=== PATIENT | male | born 1930 | race Caucasian/White ===

== ENCOUNTER 2017-12-27 15:43 | Inpatient (IN) | payer MEDICARE, MEDICAID ==
[~2017-12-27] VITALS: Ht 177.8 cm; Wt 67.2 kg
[2017-12-27] VITALS (10 sets, daily range): BP systolic 83–113; BP diastolic 36–84
[~2017-12-27 15:43] MED LIST: ETOMIDATE 2MG/ML 10ML VIAL IV ONE; VECURONIUM BROMIDE 10 MG/VIAL IV ONE
[2017-12-27] MEDS ORDERED: IPRATROPIUM/ALBUTEROL 0.5-3(2.5)MG/3ML NEB HHN ONE (15:45)
[2017-12-27] MEDS ORDERED: LORAZEPAM 2MG/ML CPJ IV ONE (15:45)
[2017-12-27] MEDS ORDERED: LEVO25TA7 PO (15:53)
[2017-12-27] MEDS ORDERED: APIX2.5T PO (15:53)
[2017-12-27] MEDS ORDERED: insulin (15:53)
[2017-12-27] MEDS ORDERED: DIGO250T4 PO (15:53)
[2017-12-27] MEDS ORDERED: FURO-152 PO (15:53)
[2017-12-27] MEDS ORDERED: AMIO100T4 PO (15:53)
[2017-12-27 16:21] LABS: BG BASE EXCESS -9.6 mmol/L (-2.0-2.0); BG DEOXYHEMOGLOBIN 1.7 % (0.0-5.0); BG HCO3 ACT 12.3 mmol/L (22.0-26.0); BG METHEMOGLOBIN 0.2 % (0.0-1.5); BG OXYGEN SATURATION 98.3 % (92.0-98.5); BG OXYHEMOGLOBIN 98.1 % (94.0-97.0); BG PH 7.454 (7.350-7.450); BG PO2 122.9 mmHg (75.0-100.0); BG SAMPLE SITE RIGHT BRACHIAL; BG TOTAL HEMOGLOBIN 10.4 g/dL (12.0-18.0); BG VENT MODE MASK - NRB
[2017-12-27] MEDS ORDERED: PROPOFOL 10MG/ML 100ML 100 ML IV ONE (16:30)
[2017-12-27] MEDS ORDERED: VECURONIUM BROMIDE 10 MG/VIAL IV ONE (16:30)
[2017-12-27] MEDS ORDERED: ETOMIDATE 2MG/ML 10ML VIAL IV ONE (16:30)
[2017-12-27 16:41] LABS: HEMATOCRIT. 31.1 % (42.0-52.0); HEMOGLOBIN. 10.1 g/dL (14.0-18.0); MEAN CORPUSCULAR HEMOGLOBIN 32.1 pg (28.0-32.0); MEAN PLATELET VOLUME 6.8 fl (7.4-10.4); PLATELET 456 x1000/uL (130-400); RED BLOOD CELL COUNT 3.14 mill/uL (4.7-6.1); RED CELL DISTRIBUTION WIDTH 15.8 % (11.6-14.6)
[2017-12-27 16:47] LABS: CHLORIDE 110 mEq/L (98-107)
[2017-12-27 16:51] LABS: D-DIMER 2.1 mg/L FEU (<0.50); INR 1.4; PARTIAL THROMBOPLASTIN TIME 34.1 sec (23.4-31.0)
[2017-12-27 16:56] LABS: CREATINE KINASE 113 IU/L (39-308)
[2017-12-27 17:11] LABS: CLARITY URINE CLEAR (CLEAR); COLOR URINE YELLOW (YELLOW); KETONES URINE NEGATIVE (NEGATIVE); LEUKOCYTE ESTERASE URINE NEGATIVE (NEGATIVE); NITRITE URINE NEGATIVE (NEGATIVE); OCCULT BLOOD URINE NEGATIVE (NEGATIVE); PROTEIN URINE NEGATIVE (NEGATIVE); SPECIFIC GRAVITY URINE 1.015 (1.005-1.030); UROBILINOGEN URINE 0.2 E.U./dL (0.2-1.0)
[2017-12-27 17:45] LABS: BG BASE EXCESS -9.4 mmol/L (-2.0-2.0); BG CARBOXYHEMOGLOBIN 0.3 % (0.5-1.5); BG DEOXYHEMOGLOBIN 1.9 % (0.0-5.0); BG HCO3 ACT 17.6 mmol/L (22.0-26.0); BG METHEMOGLOBIN 0.3 % (0.0-1.5); BG OXYGEN SATURATION 98.1 % (92.0-98.5); BG OXYHEMOGLOBIN 97.5 % (94.0-97.0); BG PCO2 42.8 mmHg (35.0-45.0); BG PH 7.232 (7.350-7.450); BG PO2 144.8 mmHg (75.0-100.0); BG SAMPLE SITE LEFT RADIAL; BG TIDAL VOLUME(mL) 500 mL; BG TOTAL HEMOGLOBIN 10.4 g/dL (12.0-18.0); BG VENT MODE VENT - A/C; BG VENT RATE 12 set
[2017-12-27] MEDS ORDERED: VANCOMYCIN 1 G PREMIX 200 ML IV SCH (18:15)
[2017-12-27] MEDS ORDERED: ASPIRIN 81MG TABLET NG ONE (18:15)
[2017-12-27] MEDS ORDERED: PIPERACILLIN/TAZ 3.375G PREMIX 50 ML IV ONE (18:15)
[2017-12-27] MEDS ORDERED: SODIUM CHLORIDE 0.45% 1,000 ML IV SCH (18:29)
[2017-12-27] MEDS ORDERED: NA PHOS,M-B/NA PHOS,DI-BA ENEMA 118ML PR PRN (18:30)
[2017-12-27] MEDS ORDERED: HYDROCODONE/ACETAMINOPHEN 5/325MG TABLET PO PRN (18:30)
[2017-12-27] MEDS ORDERED: ACETAMINOPHEN 650MG/20.3ML UDC GT PRN (18:30)
[2017-12-27] MEDS ORDERED: ACETAMINOPHEN 325MG TABLET PO PRN (18:30)
[2017-12-27] MEDS ORDERED: CLONIDINE 0.1MG TABLET PO PRN (18:30)
[2017-12-27] MEDS ORDERED: ENOXAPARIN 40MG/0.4ML SYR SUBCUT SCH (18:30)
[2017-12-27] MEDS ORDERED: MAGNESIUM/ALUMINUM HYDROXIDE/SIMETHICONE 30ML UDC PO PRN (18:30)
[2017-12-27] MEDS ORDERED: GUAIFENESIN 200MG/10ML SUGAR FREE UDC PO PRN (18:30)
[2017-12-27] MEDS ORDERED: HYDROCODONE/ACETAMINOPHEN 10/325MG TABLET PO PRN (18:30)
[2017-12-27] MEDS ORDERED: ONDANSETRON HCL 4MG/2ML VIAL IV PRN (18:30)
[2017-12-27] MEDS ORDERED: ACETAMINOPHEN 650MG SUPP PR PRN (18:30)
[2017-12-27] MEDS ORDERED: DOCUSATE SODIUM 100MG CAPSULE PO PRN (18:30)
[2017-12-27] MEDS ORDERED: PIPERACILLIN/TAZ 3.375G PREMIX 50 ML IV SCH (18:30)
[2017-12-27] MEDS ORDERED: IPRATROPIUM/ALBUTEROL 0.5-3(2.5)MG/3ML NEB INH PRN (18:30)
[2017-12-27] MEDS ORDERED: BISACODYL 10MG SUPP PR PRN (18:45)
[2017-12-27] MEDS ORDERED: LORAZEPAM 2MG/ML CPJ IV PRN (18:45)
[2017-12-27] MEDS ORDERED: BISACODYL 5MG TABLET PO PRN (18:45)
[2017-12-27] MEDS ORDERED: DEXTROSE 50% WATER 50ML SYRINGE IV PRN (18:45)
[2017-12-27 18:47] LABS: PLATELET ESTIMATE INCREASED
[2017-12-27] MEDS ORDERED: INSULIN LISPRO 100 UNITS/ML SUBCUT SCH (21:00)
[2017-12-27] MEDS ORDERED: BLOOD SUGAR DIAGNOSTIC STRIP TEST SCH (21:00)
[2017-12-27] MEDS: CARVEDILOL 3.125 MG TABLET PO SCH (22:34)
[2017-12-27] MEDS ORDERED: SODIUM CHLORIDE 0.9% 1000ML BAG (SEPSIS BOLUS) IV ONE (23:00)
[2017-12-27] MEDS: SODIUM CHLORIDE 0.9% INJ 3ML FLUSH IVF SCH (23:13)
[2017-12-27] MEDS ORDERED: NOREPINEPHRINE 8 MG in DEXT 5% WATER 242 ML IV PRN (23:30)
[2017-12-27] MEDS: BLOOD SUGAR DIAGNOSTIC STRIP TEST SCH (23:42)
[2017-12-27] MEDS: ENOXAPARIN 60MG/0.6ML SYR SUBCUT SCH (23:45)
[2017-12-27] MEDS: PANTOPRAZOLE SODIUM 40 MG/VIAL IV SCH (23:45)
[2017-12-28] VITALS (99 sets, daily range): BP systolic 79–134; BP diastolic 32–74
[2017-12-28] MEDS ORDERED: NOREPINEPHRINE 4 MG in DEXT 5% WATER 246 ML IV PRN ×2
[2017-12-28] MEDS: INSULIN LISPRO 100 UNITS/ML SUBCUT SCH ×5 (00:06→21:00)
[2017-12-28] MEDS: SODIUM CHLORIDE 0.9% 1,000 ML IV SCH ×2 (00:06→13:58)
[2017-12-28] MEDS: PROPOFOL 10MG/ML 100ML 100 ML IV PRN ×2 (02:26→20:31)
[2017-12-28] MEDS ORDERED: VANCOMYCIN 1 G PREMIX 200 ML IV SCH (04:00)
[2017-12-28] MEDS: SODIUM CHLORIDE 0.9% INJ 3ML FLUSH IVF SCH ×3 (05:12→22:00)
[2017-12-28] MEDS: PIPERACILLIN/TAZ 2.25G PREMIX 50 ML IV SCH ×3 (05:12→21:35)
[2017-12-28] MEDS: BLOOD SUGAR DIAGNOSTIC STRIP TEST SCH ×4 (06:07→21:00)
[2017-12-28 06:22] LABS: CHLORIDE 111 mEq/L (98-107); HEMATOCRIT. 28.4 % (42.0-52.0); HEMOGLOBIN. 9.2 g/dL (14.0-18.0); MEAN CORPUSCULAR HEMOGLOBIN 32.1 pg (28.0-32.0); MEAN PLATELET VOLUME 8.2 fl (7.4-10.4); PLATELET 325 x1000/uL (130-400); RED BLOOD CELL COUNT 2.87 mill/uL (4.7-6.1); RED CELL DISTRIBUTION WIDTH 15.8 % (11.6-14.6)
[2017-12-28 06:31] LABS: CREATINE KINASE 297 IU/L (39-308); CREATINE KINASE MB FRACTION 3.4 ng/mL (0.5-3.6); LDL CHOLESTEROL 36 mg/dL (5-100)
[2017-12-28 06:32] LABS: HDL CHOLESTEROL 32 mg/dL (40-59)
[2017-12-28] MEDS ORDERED: DEXTROSE 50% WATER 50ML SYRINGE IV PRN (07:45)
[2017-12-28 08:47] LABS: BG BASE EXCESS -6.6 mmol/L (-2.0-2.0); BG CARBOXYHEMOGLOBIN 0.2 % (0.5-1.5); BG DEOXYHEMOGLOBIN 1.1 % (0.0-5.0); BG FRACTION INSPIRED OXYGEN 40; BG METHEMOGLOBIN 0.2 % (0.0-1.5); BG OXYGEN SATURATION 98.9 % (92.0-98.5); BG OXYHEMOGLOBIN 98.5 % (94.0-97.0); BG PCO2 27.5 mmHg (35.0-45.0); BG PH 7.409 (7.350-7.450); BG PO2 153.6 mmHg (75.0-100.0); BG SAMPLE SITE RIGHT BRACHIAL; BG TIDAL VOLUME(mL) 500 mL; BG TOTAL HEMOGLOBIN 9.1 g/dL (12.0-18.0); BG VENT MODE VENT - A/C; BG VENT RATE 14 set
[2017-12-28] MEDS: CARVEDILOL 3.125 MG TABLET PO SCH ×2 (09:00→21:00)
[2017-12-28] MEDS ORDERED: ASPIRIN 325MG EC TABLET PO SCH (09:00)
[2017-12-28] MEDS: PANTOPRAZOLE SODIUM 40 MG/VIAL IV SCH (09:47)
[2017-12-28] MEDS ORDERED: IPRATROPIUM/ALBUTEROL 0.5-3(2.5)MG/3ML NEB HHN PRN (10:30)
[2017-12-28] MEDS: IPRATROPIUM/ALBUTEROL 0.5-3(2.5)MG/3ML NEB HHN SCH ×3 (12:25→21:01)
[2017-12-28] MEDS ORDERED: LIDOCAINE HCL/PF 1% 10 MG/ML 30ML VIAL ONE (13:16)
[2017-12-28 13:22] LABS: *AMPHETAMINES SCREEN URINE NEGATIVE (NEGATIVE); *BARBITURATES SCREEN URINE NEGATIVE (NEGATIVE)
[2017-12-28 13:23] LABS: *BENZODIAZEPINES SCREEN URINE NEGATIVE (NEGATIVE); *COCAINE SCREEN URINE NEGATIVE (NEGATIVE); CANNABINOID URINE SCREEN NEGATIVE (NEGATIVE); METHADONE URINE SCREEN NEGATIVE (NEGATIVE); OPIATES URINE SCREEN NEGATIVE (NEGATIVE); PHENCYCLIDINE URINE SCREEN NEGATIVE (NEGATIVE)
[2017-12-28 14:06] LABS: PLATELET ESTIMATE NORMAL
[2017-12-29] VITALS (93 sets, daily range): BP systolic 63–126; BP diastolic 36–94
[2017-12-29] MEDS: ENOXAPARIN 60MG/0.6ML SYR SUBCUT SCH ×2 (00:16→23:34)
[2017-12-29] MEDS: IPRATROPIUM/ALBUTEROL 0.5-3(2.5)MG/3ML NEB HHN SCH ×5 (02:12→20:36)
[2017-12-29] MEDS: SODIUM CHLORIDE 0.9% 1,000 ML IV SCH ×2 (03:08→15:00)
[2017-12-29] MEDS: SODIUM CHLORIDE 0.9% INJ 3ML FLUSH IVF SCH ×3 (06:00→23:34)
[2017-12-29] MEDS: PIPERACILLIN/TAZ 2.25G PREMIX 50 ML IV SCH ×3 (06:30→20:52)
[2017-12-29] MEDS: BLOOD SUGAR DIAGNOSTIC STRIP TEST SCH ×4 (06:30→20:47)
[2017-12-29] MEDS: INSULIN LISPRO 100 UNITS/ML SUBCUT SCH ×4 (06:49→20:51)
[2017-12-29 06:51] LABS: HEMATOCRIT. 23.9 % (42.0-52.0); MEAN CORPUSCULAR HEMOGLOBIN 31.8 pg (28.0-32.0); MEAN CORPUSCULAR VOLUME 95.3 fL (80.0-94.0); MEAN PLATELET VOLUME 7.1 fl (7.4-10.4); PLATELET 290 x1000/uL (130-400); RED BLOOD CELL COUNT 2.51 mill/uL (4.7-6.1); RED CELL DISTRIBUTION WIDTH 15.2 % (11.6-14.6)
[2017-12-29 08:00] LABS: BG BASE EXCESS -5.6 mmol/L (-2.0-2.0); BG CARBOXYHEMOGLOBIN 0.1 % (0.5-1.5); BG DEOXYHEMOGLOBIN 1.2 % (0.0-5.0); BG FRACTION INSPIRED OXYGEN 35; BG METHEMOGLOBIN 0.2 % (0.0-1.5); BG OXYGEN SATURATION 98.8 % (92.0-98.5); BG OXYHEMOGLOBIN 98.5 % (94.0-97.0); BG PCO2 28.2 mmHg (35.0-45.0); BG PH 7.424 (7.350-7.450); BG PO2 149.6 mmHg (75.0-100.0); BG SAMPLE SITE RIGHT BRACHIAL; BG TIDAL VOLUME(mL) 500 mL; BG TOTAL HEMOGLOBIN 7.9 g/dL (12.0-18.0); BG VENT MODE VENT - A/C; BG VENT RATE 14 set
[2017-12-29] MEDS ORDERED: LIDOCAINE HCL/PF 1% 10 MG/ML 5ML VIAL ONE (08:05)
[2017-12-29] MEDS: PANTOPRAZOLE SODIUM 40 MG/VIAL IV SCH (08:35)
[2017-12-29] MEDS: ASPIRIN 81MG EC TABLET PO SCH (08:35)
[2017-12-29] MEDS ORDERED: FUROSEMIDE 40MG/4ML VIAL IVP NR (09:45)
[2017-12-29] MEDS: CARVEDILOL 3.125 MG TABLET PO SCH ×2 (10:13→20:47)
[2017-12-29] MEDS: VANCOMYCIN 750 MG PREMIX 150 ML IV SCH (10:30)
[2017-12-29 12:05] LABS: NUCLEATED RED BLOOD CELLS 1 /100 WBC; PLATELET ESTIMATE NORMAL
[2017-12-29] MEDS: PROPOFOL 10MG/ML 100ML 100 ML IV PRN (14:06)
[2017-12-29 16:34] LABS: HEMOGLOBIN 8.3 g/dL (14.0-18.0)
[2017-12-30] VITALS (68 sets, daily range): BP systolic 107–131; BP diastolic 43–95
[2017-12-30] MEDS: IPRATROPIUM/ALBUTEROL 0.5-3(2.5)MG/3ML NEB HHN SCH ×6 (00:33→20:02)
[2017-12-30] MEDS: PIPERACILLIN/TAZ 2.25G PREMIX 50 ML IV SCH ×4 (01:48→20:35)
[2017-12-30] MEDS: INSULIN LISPRO 100 UNITS/ML SUBCUT SCH ×4 (06:25→21:41)
[2017-12-30] MEDS: BLOOD SUGAR DIAGNOSTIC STRIP TEST SCH ×4 (06:25→21:37)
[2017-12-30] MEDS: SODIUM CHLORIDE 0.9% INJ 3ML FLUSH IVF SCH ×3 (06:55→21:45)
[2017-12-30 06:59] LABS: HEMATOCRIT. 23.9 % (42.0-52.0); HEMOGLOBIN. 7.8 g/dL (14.0-18.0); MEAN CORPUSCULAR HEMOGLOBIN 31.2 pg (28.0-32.0); MEAN CORPUSCULAR VOLUME 96.3 fL (80.0-94.0); MEAN PLATELET VOLUME 7.6 fl (7.4-10.4); PLATELET 243 x1000/uL (130-400); RED BLOOD CELL COUNT 2.49 mill/uL (4.7-6.1); RED CELL DISTRIBUTION WIDTH 15.5 % (11.6-14.6)
[2017-12-30] MEDS: PROPOFOL 10MG/ML 100ML 100 ML IV PRN (08:12)
[2017-12-30] MEDS: PANTOPRAZOLE SODIUM 40 MG/VIAL IV SCH (09:47)
[2017-12-30] MEDS: ASPIRIN 81MG EC TABLET PO SCH (09:48)
[2017-12-30] MEDS: VANCOMYCIN 750 MG PREMIX 150 ML IV SCH (09:48)
[2017-12-30] MEDS: CARVEDILOL 3.125 MG TABLET PO SCH ×2 (09:48→21:43)
[2017-12-30 10:14] LABS: PLATELET ESTIMATE NORMAL
[2017-12-30] MEDS ORDERED: LORAZEPAM 2MG/ML CPJ IV PRN (12:45)
[2017-12-30] MEDS: ENOXAPARIN 60MG/0.6ML SYR SUBCUT SCH (14:53)
[2017-12-30] MEDS: KCL 20MEQ/100ML PREMIX 100 ML IV SCH ×2 (14:54→17:59)
[2017-12-30 15:28] LABS: BG BASE EXCESS -7.4 mmol/L (-2.0-2.0); BG CARBOXYHEMOGLOBIN 0.3 % (0.5-1.5); BG FRACTION INSPIRED OXYGEN 30; BG HCO3 ACT 15.7 mmol/L (22.0-26.0); BG METHEMOGLOBIN 0.2 % (0.0-1.5); BG OXYHEMOGLOBIN 97.5 % (94.0-97.0); BG PH 7.434 (7.350-7.450); BG PO2 116.9 mmHg (75.0-100.0); BG PRESSURE SUPPORT 10; BG SAMPLE SITE RIGHT BRACHIAL; BG TIDAL VOLUME(mL) 450 mL; BG TOTAL HEMOGLOBIN 8.6 g/dL (12.0-18.0); BG VENT MODE VENT - SIMV; BG VENT RATE 8 set
[2017-12-30] MEDS: MORPHINE SULFATE 4 MG/ML CPJ (NOT FOR IM USE) IV PRN (16:36)
[2017-12-30] MEDS: SODIUM CHLORIDE 0.9% 1,000 ML IV SCH (18:01)
[2017-12-30] MEDS: SODIUM HYPOCHLORITE (0.25%) 480ML SOLUTION (HALF STRENGTH) TOP SCH ×2 (21:36→21:44)
[2017-12-31] VITALS (46 sets, daily range): BP systolic 95–128; BP diastolic 45–71
[2017-12-31] MEDS: IPRATROPIUM/ALBUTEROL 0.5-3(2.5)MG/3ML NEB HHN SCH ×5 (00:14→20:23)
[2017-12-31] MEDS: MORPHINE SULFATE 4 MG/ML CPJ (NOT FOR IM USE) IV PRN (02:02)
[2017-12-31] MEDS: PIPERACILLIN/TAZ 2.25G PREMIX 50 ML IV SCH ×4 (02:05→22:04)
[2017-12-31] MEDS: ENOXAPARIN 60MG/0.6ML SYR SUBCUT SCH ×2 (02:06→15:26)
[2017-12-31 05:53] LABS: HEMATOCRIT. 23.5 % (42.0-52.0); HEMOGLOBIN. 7.6 g/dL (14.0-18.0); MEAN CORPUSCULAR HEMOGLOBIN 31.5 pg (28.0-32.0); MEAN CORPUSCULAR VOLUME 97.2 fL (80.0-94.0); MEAN PLATELET VOLUME 7.9 fl (7.4-10.4); PLATELET 214 x1000/uL (130-400); RED BLOOD CELL COUNT 2.42 mill/uL (4.7-6.1); RED CELL DISTRIBUTION WIDTH 15.8 % (11.6-14.6)
[2017-12-31] MEDS: SODIUM CHLORIDE 0.9% INJ 3ML FLUSH IVF SCH ×3 (06:00→22:05)
[2017-12-31 06:34] LABS: DIGOXIN 1.7 ng/mL (0.9-2.0)
[2017-12-31] MEDS: INSULIN LISPRO 100 UNITS/ML SUBCUT SCH ×4 (06:51→22:01)
[2017-12-31] MEDS: BLOOD SUGAR DIAGNOSTIC STRIP TEST SCH ×4 (07:11→21:00)
[2017-12-31 08:24] LABS: PLATELET ESTIMATE NORMAL
[2017-12-31] MEDS: SODIUM CHLORIDE 0.9% 1,000 ML IV SCH (08:30)
[2017-12-31] MEDS ORDERED: SODIUM HYPOCHLORITE (0.25%) 480ML SOLUTION (HALF STRENGTH) TOP SCH (09:00)
[2017-12-31 09:19] LABS: BG BASE EXCESS -6.9 mmol/L (-2.0-2.0); BG CARBOXYHEMOGLOBIN 0.3 % (0.5-1.5); BG DEOXYHEMOGLOBIN 1.4 % (0.0-5.0); BG FRACTION INSPIRED OXYGEN 30; BG HCO3 ACT 16.7 mmol/L (22.0-26.0); BG METHEMOGLOBIN 0.3 % (0.0-1.5); BG OXYGEN SATURATION 98.6 % (92.0-98.5); BG PCO2 26.7 mmHg (35.0-45.0); BG PH 7.415 (7.350-7.450); BG PRESSURE SUPPORT 10; BG SAMPLE SITE LEFT RADIAL; BG TIDAL VOLUME(mL) 450 mL; BG TOTAL HEMOGLOBIN 7.9 g/dL (12.0-18.0); BG VENT MODE VENT - SIMV; BG VENT RATE 8 set
[2017-12-31] MEDS: CARVEDILOL 3.125 MG TABLET PO SCH ×2 (09:21→22:00)
[2017-12-31] MEDS: PANTOPRAZOLE SODIUM 40 MG/VIAL IV SCH (09:21)
[2017-12-31] MEDS: ASPIRIN 81MG EC TABLET PO SCH (09:21)
[2017-12-31] MEDS: VANCOMYCIN 750 MG PREMIX 150 ML IV SCH (11:35)
[2017-12-31] MEDS: SODIUM HYPOCHLORITE 0.125% 473ML SOLUTION TOP SCH (11:35)
[2018-01-01] VITALS (40 sets, daily range): BP systolic 100–135; BP diastolic 48–67
[2018-01-01] MEDS: IPRATROPIUM/ALBUTEROL 0.5-3(2.5)MG/3ML NEB HHN SCH ×6 (00:30→15:58)
[2018-01-01] MEDS: PIPERACILLIN/TAZ 2.25G PREMIX 50 ML IV SCH ×4 (02:58→20:19)
[2018-01-01] MEDS: ENOXAPARIN 60MG/0.6ML SYR SUBCUT SCH ×2 (02:58→16:44)
[2018-01-01] MEDS: SODIUM CHLORIDE 0.9% 1,000 ML IV SCH (04:28)
[2018-01-01 05:28] LABS: HEMATOCRIT. 23.6 % (42.0-52.0); HEMOGLOBIN. 7.7 g/dL (14.0-18.0); MEAN CORPUSCULAR HEMOGLOBIN 31.6 pg (28.0-32.0); MEAN CORPUSCULAR VOLUME 97.2 fL (80.0-94.0); MEAN PLATELET VOLUME 7.8 fl (7.4-10.4); PLATELET 210 x1000/uL (130-400); RED BLOOD CELL COUNT 2.42 mill/uL (4.7-6.1); RED CELL DISTRIBUTION WIDTH 15.5 % (11.6-14.6)
[2018-01-01] MEDS: INSULIN LISPRO 100 UNITS/ML SUBCUT SCH ×2 (06:51→13:31)
[2018-01-01] MEDS: BLOOD SUGAR DIAGNOSTIC STRIP TEST SCH ×2 (06:52→11:30)
[2018-01-01] MEDS: SODIUM CHLORIDE 0.9% INJ 3ML FLUSH IVF SCH ×3 (06:52→21:23)
[2018-01-01] MEDS: VANCOMYCIN 750 MG PREMIX 150 ML IV SCH (08:49)
[2018-01-01] MEDS: SODIUM HYPOCHLORITE (0.25%) 480ML SOLUTION (HALF STRENGTH) TOP SCH (08:49)
[2018-01-01] MEDS: PANTOPRAZOLE SODIUM 40 MG/VIAL IV SCH (08:49)
[2018-01-01] MEDS: SODIUM HYPOCHLORITE 0.125% 473ML SOLUTION TOP SCH (08:49)
[2018-01-01] MEDS: ASPIRIN 81MG EC TABLET PO SCH (08:49)
[2018-01-01] MEDS: CARVEDILOL 3.125 MG TABLET PO SCH ×2 (08:49→20:19)
[2018-01-01 09:17] LABS: PLATELET ESTIMATE NORMAL
[2018-01-01 10:32] LABS: BG DEOXYHEMOGLOBIN 1.2 % (0.0-5.0); BG HCO3 ACT 15.7 mmol/L (22.0-26.0); BG METHEMOGLOBIN 0.4 % (0.0-1.5); BG OXYGEN SATURATION 98.8 % (92.0-98.5); BG OXYHEMOGLOBIN 98.4 % (94.0-97.0); BG PCO2 25.6 mmHg (35.0-45.0); BG PH 7.406 (7.350-7.450); BG PO2 151.5 mmHg (75.0-100.0); BG SAMPLE SITE RIGHT RADIAL; BG VENT MODE VENT - SIMV; BG VENT RATE 6 set
[2018-01-01 10:35] LABS: BG TIDAL VOLUME(mL) 450 mL
[2018-01-01 10:36] LABS: BG FRACTION INSPIRED OXYGEN 30; BG PEEP (cmH2O) 5 cmH2O
[2018-01-01 10:37] LABS: BG TOTAL RESPIRATORY RATE 23 b/min
[2018-01-01 10:42] LABS: BG PRESSURE SUPPORT 10
[2018-01-01] MEDS ORDERED: INSULIN LISPRO 100 UNITS/ML SUBCUT SCH (21:00)
[2018-01-01 21:36] LABS: BG BASE EXCESS -8.9 mmol/L (-2.0-2.0); BG DEOXYHEMOGLOBIN 0.7 % (0.0-5.0); BG FRACTION INSPIRED OXYGEN 50; BG HCO3 ACT 15.3 mmol/L (22.0-26.0); BG METHEMOGLOBIN 0.1 % (0.0-1.5); BG OXYGEN SATURATION 99.3 % (92.0-98.5); BG OXYHEMOGLOBIN 99.2 % (94.0-97.0); BG PCO2 28.3 mmHg (35.0-45.0); BG PO2 236.3 mmHg (75.0-100.0); BG SAMPLE SITE RIGHT BRACHIAL; BG TIDAL VOLUME(mL) 450 mL; BG TOTAL HEMOGLOBIN 12.3 g/dL (12.0-18.0); BG VENT MODE VENT - A/C; BG VENT RATE 12 set
[2018-01-01] MEDS: MORPHINE SULFATE 4 MG/ML CPJ (NOT FOR IM USE) IV PRN (22:12)
[2018-01-02] VITALS (50 sets, daily range): BP systolic 72–146; BP diastolic 47–107
[2018-01-02] MEDS ORDERED: BLOOD SUGAR DIAGNOSTIC STRIP TEST SCH
[2018-01-02] MEDS: LORAZEPAM 2MG/ML CPJ IM PRN ×3 (00:10→18:47)
[2018-01-02] MEDS: SODIUM CHLORIDE 0.9% 1,000 ML IV SCH ×2 (00:10→20:27)
[2018-01-02] MEDS: BLOOD SUGAR DIAGNOSTIC STRIP TEST SCH ×5 (00:18→23:48)
[2018-01-02] MEDS: INSULIN LISPRO 100 UNITS/ML SUBCUT SCH ×5 (00:27→23:51)
[2018-01-02] MEDS: IPRATROPIUM/ALBUTEROL 0.5-3(2.5)MG/3ML NEB HHN SCH ×7 (00:40→23:49)
[2018-01-02] MEDS: PIPERACILLIN/TAZ 2.25G PREMIX 50 ML IV SCH ×4 (01:07→20:27)
[2018-01-02] MEDS: ENOXAPARIN 60MG/0.6ML SYR SUBCUT SCH ×2 (01:08→14:00)
[2018-01-02] MEDS: MORPHINE SULFATE 4 MG/ML CPJ (NOT FOR IM USE) IV PRN ×3 (02:29→21:26)
[2018-01-02] MEDS: SODIUM CHLORIDE 0.9% INJ 3ML FLUSH IVF SCH ×3 (05:07→21:16)
[2018-01-02 05:38] LABS: HEMATOCRIT. 21.7 % (42.0-52.0); HEMOGLOBIN. 7.1 g/dL (14.0-18.0); MEAN CORPUSCULAR HEMOGLOBIN 31.4 pg (28.0-32.0); MEAN CORPUSCULAR VOLUME 96.3 fL (80.0-94.0); MEAN PLATELET VOLUME 7.6 fl (7.4-10.4); PLATELET 221 x1000/uL (130-400); RED BLOOD CELL COUNT 2.25 mill/uL (4.7-6.1); RED CELL DISTRIBUTION WIDTH 15.4 % (11.6-14.6)
[2018-01-02] MEDS: ASPIRIN 81MG EC TABLET PO SCH (07:42)
[2018-01-02] MEDS: SODIUM HYPOCHLORITE (0.25%) 480ML SOLUTION (HALF STRENGTH) TOP SCH (07:42)
[2018-01-02] MEDS: PANTOPRAZOLE SODIUM 40 MG/VIAL IV SCH (07:42)
[2018-01-02] MEDS: SODIUM HYPOCHLORITE 0.125% 473ML SOLUTION TOP SCH (07:42)
[2018-01-02 08:12] LABS: BG BASE EXCESS -8.6 mmol/L (-2.0-2.0); BG CARBOXYHEMOGLOBIN 0.3 % (0.5-1.5); BG DEOXYHEMOGLOBIN 1.3 % (0.0-5.0); BG FRACTION INSPIRED OXYGEN 40; BG HCO3 ACT 15.5 mmol/L (22.0-26.0); BG METHEMOGLOBIN 0.3 % (0.0-1.5); BG OXYGEN SATURATION 98.7 % (92.0-98.5); BG OXYHEMOGLOBIN 98.1 % (94.0-97.0); BG PCO2 26.8 mmHg (35.0-45.0); BG PO2 152.6 mmHg (75.0-100.0); BG SAMPLE SITE RIGHT BRACHIAL; BG TIDAL VOLUME(mL) 450 mL; BG VENT MODE VENT - A/C; BG VENT RATE 12 set
[2018-01-02] MEDS: VANCOMYCIN 1 G PREMIX 200 ML IV SCH (08:48)
[2018-01-02] MEDS: CARVEDILOL 3.125 MG TABLET PO SCH ×2 (08:49→20:27)
[2018-01-02 09:39] LABS: PLATELET ESTIMATE NORMAL
[2018-01-02] MEDS ORDERED: FUROSEMIDE 40MG/4ML VIAL IVP NR (11:30)
[2018-01-02 12:44] LABS: BG BASE EXCESS -9.1 mmol/L (-2.0-2.0); BG CARBOXYHEMOGLOBIN 0.3 % (0.5-1.5); BG DEOXYHEMOGLOBIN 1.5 % (0.0-5.0); BG FRACTION INSPIRED OXYGEN 40; BG HCO3 ACT 15.7 mmol/L (22.0-26.0); BG METHEMOGLOBIN 0.3 % (0.0-1.5); BG OXYGEN SATURATION 98.5 % (92.0-98.5); BG OXYHEMOGLOBIN 97.9 % (94.0-97.0); BG PCO2 30.2 mmHg (35.0-45.0); BG PH 7.335 (7.350-7.450); BG PO2 143.1 mmHg (75.0-100.0); BG PRESSURE SUPPORT 8; BG SAMPLE SITE RIGHT BRACHIAL; BG TOTAL HEMOGLOBIN 9.1 g/dL (12.0-18.0); BG VENT MODE VENT - CPAP
[2018-01-02] MEDS: METRONIDAZOLE 500MG TABLET PO SCH (21:26)
[2018-01-03] VITALS (52 sets, daily range): BP systolic 108–137; BP diastolic 44–95
[2018-01-03] MEDS: PIPERACILLIN/TAZ 2.25G PREMIX 50 ML IV SCH ×4 (01:03→20:42)
[2018-01-03] MEDS: ENOXAPARIN 60MG/0.6ML SYR SUBCUT SCH (01:03)
[2018-01-03] MEDS: METRONIDAZOLE 500MG TABLET PO SCH ×3 (05:27→22:02)
[2018-01-03] MEDS: INSULIN LISPRO 100 UNITS/ML SUBCUT SCH ×4 (05:27→23:50)
[2018-01-03] MEDS: BLOOD SUGAR DIAGNOSTIC STRIP TEST SCH ×4 (05:27→23:49)
[2018-01-03] MEDS: SODIUM CHLORIDE 0.9% INJ 3ML FLUSH IVF SCH ×3 (05:28→22:03)
[2018-01-03 06:03] LABS: HEMATOCRIT. 21.6 % (42.0-52.0); MEAN CORPUSCULAR HEMOGLOBIN 31.1 pg (28.0-32.0); MEAN PLATELET VOLUME 7.9 fl (7.4-10.4); PLATELET 264 x1000/uL (130-400); RED BLOOD CELL COUNT 2.23 mill/uL (4.7-6.1); RED CELL DISTRIBUTION WIDTH 15.8 % (11.6-14.6)
[2018-01-03 06:20] LABS: HEMOGLOBIN. 6.9 g/dL (14.0-18.0)
[2018-01-03 08:03] LABS: BG BASE EXCESS -8.7 mmol/L (-2.0-2.0); BG CARBOXYHEMOGLOBIN 1.3 % (0.5-1.5); BG DEOXYHEMOGLOBIN 1.7 % (0.0-5.0); BG FRACTION INSPIRED OXYGEN 30; BG HCO3 ACT 15.3 mmol/L (22.0-26.0); BG METHEMOGLOBIN 0.1 % (0.0-1.5); BG OXYGEN SATURATION 98.3 % (92.0-98.5); BG OXYHEMOGLOBIN 96.9 % (94.0-97.0); BG PCO2 25.6 mmHg (35.0-45.0); BG PH 7.395 (7.350-7.450); BG PO2 99.1 mmHg (75.0-100.0); BG PRESSURE SUPPORT 8; BG SAMPLE SITE RIGHT BRACHIAL; BG TIDAL VOLUME(mL) 450 mL; BG TOTAL HEMOGLOBIN 6.2 g/dL (12.0-18.0); BG VENT MODE VENT - SIMV; BG VENT RATE 10 set
[2018-01-03] MEDS: IPRATROPIUM/ALBUTEROL 0.5-3(2.5)MG/3ML NEB HHN SCH ×4 (08:04→20:35)
[2018-01-03] MEDS: FAMOTIDINE 20MG TABLET PO SCH (08:35)
[2018-01-03] MEDS: CARVEDILOL 3.125 MG TABLET PO SCH ×2 (08:35→20:43)
[2018-01-03] MEDS: FUROSEMIDE 20MG/2ML VIAL IVP SCH (08:35)
[2018-01-03] MEDS: ASPIRIN 81MG EC TABLET PO SCH (08:36)
[2018-01-03] MEDS: SODIUM HYPOCHLORITE (0.25%) 480ML SOLUTION (HALF STRENGTH) TOP SCH (08:37)
[2018-01-03] MEDS: MORPHINE SULFATE 4 MG/ML CPJ (NOT FOR IM USE) IV PRN ×2 (12:31→16:30)
[2018-01-03] MEDS: LORAZEPAM 2MG/ML CPJ IM PRN (12:44)
[2018-01-03 14:50] LABS: PLATELET ESTIMATE NORMAL
[2018-01-03] MEDS ORDERED: FUROSEMIDE 40MG/4ML VIAL IVP NR (16:00)
[2018-01-03] MEDS: VANCOMYCIN 1 G PREMIX 200 ML IV SCH (20:42)
[2018-01-03 20:53] LABS: HEMATOCRIT 29.3 % (42.0-52.0); HEMOGLOBIN 9.6 g/dL (14.0-18.0)
[2018-01-03] MEDS: DEXT 5%/0.45% NACL 1000ML 1,000 ML IV SCH (23:51)
[2018-01-04] VITALS (48 sets, daily range): BP systolic 106–137; BP diastolic 40–85
[2018-01-04] MEDS: INSULIN LISPRO 100 UNITS/ML SUBCUT SCH ×5 (00:04→23:59)
[2018-01-04] MEDS: IPRATROPIUM/ALBUTEROL 0.5-3(2.5)MG/3ML NEB HHN SCH ×5 (00:24→20:24)
[2018-01-04] MEDS: PIPERACILLIN/TAZ 2.25G PREMIX 50 ML IV SCH ×4 (01:27→20:53)
[2018-01-04] MEDS: BLOOD SUGAR DIAGNOSTIC STRIP TEST SCH ×4 (05:36→23:55)
[2018-01-04] MEDS: SODIUM CHLORIDE 0.9% INJ 3ML FLUSH IVF SCH ×3 (05:39→21:03)
[2018-01-04] MEDS: METRONIDAZOLE 500MG TABLET PO SCH ×3 (05:39→21:03)
[2018-01-04] MEDS: MORPHINE SULFATE 4 MG/ML CPJ (NOT FOR IM USE) IV PRN ×2 (05:40→12:17)
[2018-01-04 05:45] LABS: HEMOGLOBIN. 9.6 g/dL (14.0-18.0); MEAN CORPUSCULAR HEMOGLOBIN 30.5 pg (28.0-32.0); MEAN CORPUSCULAR VOLUME 92.5 fL (80.0-94.0); MEAN PLATELET VOLUME 7.6 fl (7.4-10.4); PLATELET 313 x1000/uL (130-400); RED BLOOD CELL COUNT 3.14 mill/uL (4.7-6.1); RED CELL DISTRIBUTION WIDTH 16.9 % (11.6-14.6)
[2018-01-04 06:04] LABS: PARTIAL THROMBOPLASTIN TIME 32.9 sec (23.4-31.0); PROTHROMBIN TIME 10.7 sec (9.4-11.6)
[2018-01-04 08:13] LABS: BG BASE EXCESS -8.2 mmol/L (-2.0-2.0); BG DEOXYHEMOGLOBIN 2.2 % (0.0-5.0); BG FRACTION INSPIRED OXYGEN 30; BG HCO3 ACT 15.3 mmol/L (22.0-26.0); BG METHEMOGLOBIN 0.1 % (0.0-1.5); BG OXYGEN SATURATION 97.8 % (92.0-98.5); BG OXYHEMOGLOBIN 97.7 % (94.0-97.0); BG PCO2 25.5 mmHg (35.0-45.0); BG PH 7.396 (7.350-7.450); BG PO2 109.9 mmHg (75.0-100.0); BG PRESSURE SUPPORT 8; BG SAMPLE SITE RIGHT RADIAL; BG TIDAL VOLUME(mL) 450 mL; BG TOTAL HEMOGLOBIN 10.3 g/dL (12.0-18.0); BG VENT MODE VENT - SIMV; BG VENT RATE 10 set
[2018-01-04] MEDS: LORAZEPAM 2MG/ML CPJ IM PRN (08:17)
[2018-01-04] MEDS: FAMOTIDINE 20MG TABLET PO SCH (09:00)
[2018-01-04] MEDS: ASPIRIN 81MG EC TABLET PO SCH (09:00)
[2018-01-04] MEDS: CARVEDILOL 3.125 MG TABLET PO SCH ×2 (09:00→21:00)
[2018-01-04 11:00] LABS: PLATELET ESTIMATE NORMAL
[2018-01-04] MEDS: FUROSEMIDE 20MG/2ML VIAL IVP SCH (11:33)
[2018-01-04] MEDS: SODIUM HYPOCHLORITE (0.25%) 480ML SOLUTION (HALF STRENGTH) TOP SCH (12:58)
[2018-01-04] MEDS ORDERED: BACITRACIN ZINC 15GM TUBE TOP ONE ×2 (14:06→15:00)
[2018-01-04] MEDS ORDERED: HEPARIN SODIUM 1,000 UNIT/1ML VIAL IV ONE (14:07)
[2018-01-04] MEDS ORDERED: THROMBIN (BOVINE) 5000 UNITS/VIAL TOP ONE (14:07)
[2018-01-04] MEDS ORDERED: BUPIVACAINE HCL/PF 0.5% (5MG/ML) 10ML ONE (14:07)
[2018-01-04] MEDS ORDERED: SODIUM CHLORIDE 0.9% 1,000 ML ONE (14:08)
[2018-01-04] MEDS ORDERED: NORMAL SALINE 0.9% 10 ML SYR ONE (14:08)
[2018-01-04] MEDS ORDERED: BACITRACIN 50,000 UNITS/VIAL ONE (14:08)
[2018-01-04] MEDS ORDERED: LIDOCAINE HCL/PF 1% 10 MG/ML 5ML VIAL ONE (14:08)
[2018-01-04] MEDS ORDERED: GELATIN SPONGE,ABSORBABLE SZ 100 ONE (14:18)
[2018-01-04] MEDS ORDERED: ROCURONIUM BROMIDE 10MG/ML VIAL 5ML IV ONE ×2 (15:05→18:21)
[2018-01-04] MEDS ORDERED: MIDAZOLAM HCL 2 MG/2 ML VIAL ONE (15:22)
[2018-01-04] MEDS ORDERED: HEPARIN 1000 UNITS/ML 10ML ONE (17:08)
[2018-01-04] MEDS ORDERED: PROTAMINE SULFATE 10MG/ML VIAL 5ML IV ONE (17:08)
[2018-01-04] MEDS ORDERED: VANCOMYCIN HCL 500 MG/VIAL ONE (18:02)
[2018-01-04] MEDS ORDERED: FENTANYL CITRATE/PF 50MCG/ML 2ML VIAL ONE (18:23)
[2018-01-04 20:11] LABS: HEMATOCRIT 33.5 % (42.0-52.0)
[2018-01-04] MEDS: DEXT 5%/0.45% NACL 1000ML 1,000 ML IV SCH (21:04)
[2018-01-05] VITALS (44 sets, daily range): BP systolic 96–141; BP diastolic 48–108
[2018-01-05] MEDS: IPRATROPIUM/ALBUTEROL 0.5-3(2.5)MG/3ML NEB HHN SCH ×7 (01:26→19:58)
[2018-01-05] MEDS: PIPERACILLIN/TAZ 2.25G PREMIX 50 ML IV SCH ×2 (01:39→08:40)
[2018-01-05] MEDS: METRONIDAZOLE 500MG TABLET PO SCH ×3 (05:36→23:03)
[2018-01-05] MEDS: SODIUM CHLORIDE 0.9% INJ 3ML FLUSH IVF SCH ×3 (05:36→22:00)
[2018-01-05] MEDS: BLOOD SUGAR DIAGNOSTIC STRIP TEST SCH ×3 (05:36→18:24)
[2018-01-05] MEDS: INSULIN LISPRO 100 UNITS/ML SUBCUT SCH ×3 (05:37→18:24)
[2018-01-05 05:57] LABS: HEMATOCRIT 31.8 % (42.0-52.0); HEMOGLOBIN 10.2 g/dL (14.0-18.0); MEAN CORPUSCULAR HEMOGLOBIN 30.1 pg (28.0-32.0); MEAN CORPUSCULAR VOLUME 93.6 fL (80.0-94.0); PLATELET 360 x1000/uL (130-400); RED CELL DISTRIBUTION WIDTH 17.2 % (11.6-14.6)
[2018-01-05] MEDS: FUROSEMIDE 20MG/2ML VIAL IVP SCH (08:40)
[2018-01-05] MEDS: ASPIRIN 81MG EC TABLET PO SCH (08:41)
[2018-01-05] MEDS: FAMOTIDINE 20MG TABLET PO SCH (08:41)
[2018-01-05] MEDS: CARVEDILOL 3.125 MG TABLET PO SCH ×2 (08:41→21:07)
[2018-01-05] MEDS: MORPHINE SULFATE 4 MG/ML CPJ (NOT FOR IM USE) IV PRN ×2 (08:49→13:04)
[2018-01-05] MEDS ORDERED: VANCOMYCIN 1 G PREMIX 200 ML IV SCH (09:00)
[2018-01-05] MEDS: SODIUM HYPOCHLORITE (0.25%) 480ML SOLUTION (HALF STRENGTH) TOP SCH (09:03)
[2018-01-05] MEDS ORDERED: CEFTRIAXONE 2 G PREMIX 50 ML IV SCH (09:15)
[2018-01-05] MEDS: CEFTRIAXONE 2 G in DEXTROSE 5% WATER 50 ML IV SCH (11:38)
[2018-01-05 12:02] LABS: BG BASE EXCESS -13.3 mmol/L (-2.0-2.0); BG CARBOXYHEMOGLOBIN 0.3 % (0.5-1.5); BG DEOXYHEMOGLOBIN 3.5 % (0.0-5.0); BG FRACTION INSPIRED OXYGEN 30; BG HCO3 ACT 11.4 mmol/L (22.0-26.0); BG METHEMOGLOBIN 0.3 % (0.0-1.5); BG OXYGEN SATURATION 96.5 % (92.0-98.5); BG OXYHEMOGLOBIN 95.9 % (94.0-97.0); BG PCO2 23.4 mmHg (35.0-45.0); BG PH 7.305 (7.350-7.450); BG PO2 97.4 mmHg (75.0-100.0); BG PRESSURE SUPPORT 10; BG SAMPLE SITE RIGHT RADIAL; BG TOTAL HEMOGLOBIN 10.1 g/dL (12.0-18.0); BG VENT MODE VENT - CPAP
[2018-01-05] MEDS ORDERED: SODIUM BICARBONATE 8.4% 1 MEQ/ML 50ML SYR IV NR (13:00)
[2018-01-05] MEDS: DEXT 5%/0.45% NACL 1000ML 1,000 ML IV SCH (17:40)
[2018-01-06] VITALS (46 sets, daily range): BP systolic 89–154; BP diastolic 46–76
[2018-01-06] MEDS: IPRATROPIUM/ALBUTEROL 0.5-3(2.5)MG/3ML NEB HHN SCH ×6 (00:04→20:33)
[2018-01-06] MEDS: INSULIN LISPRO 100 UNITS/ML SUBCUT SCH ×4 (00:53→18:33)
[2018-01-06] MEDS: MORPHINE SULFATE 4 MG/ML CPJ (NOT FOR IM USE) IV PRN ×3 (01:58→18:26)
[2018-01-06] MEDS: DEXT 5%/0.45% NACL 1000ML 1,000 ML IV SCH ×2 (03:40→09:05)
[2018-01-06] MEDS: METRONIDAZOLE 500MG TABLET PO SCH ×3 (06:03→22:14)
[2018-01-06] MEDS: BLOOD SUGAR DIAGNOSTIC STRIP TEST SCH ×4 (06:29→18:24)
[2018-01-06] MEDS: SODIUM CHLORIDE 0.9% INJ 3ML FLUSH IVF SCH ×3 (06:30→22:00)
[2018-01-06] MEDS: FUROSEMIDE 20MG/2ML VIAL IVP SCH (08:51)
[2018-01-06] MEDS: FAMOTIDINE 20MG TABLET PO SCH (08:52)
[2018-01-06] MEDS: ASPIRIN 81MG EC TABLET PO SCH (08:52)
[2018-01-06] MEDS: DIPHENHYDRAMINE 50MG/ML VIAL IV PRN ×2 (08:52→18:24)
[2018-01-06] MEDS: CARVEDILOL 3.125 MG TABLET PO SCH ×2 (08:52→21:00)
[2018-01-06 09:54] LABS: HEMATOCRIT. 25.7 % (42.0-52.0); HEMOGLOBIN. 8.1 g/dL (14.0-18.0); MEAN CORPUSCULAR HEMOGLOBIN 30.9 pg (28.0-32.0); MEAN CORPUSCULAR VOLUME 98.1 fL (80.0-94.0); MEAN PLATELET VOLUME 7.4 fl (7.4-10.4); PLATELET 312 x1000/uL (130-400); RED BLOOD CELL COUNT 2.62 mill/uL (4.7-6.1); RED CELL DISTRIBUTION WIDTH 18.1 % (11.6-14.6)
[2018-01-06 10:12] LABS: PLATELET ESTIMATE NORMAL
[2018-01-06] MEDS ORDERED: FUROSEMIDE 40MG/4ML VIAL IVP NR (11:45)
[2018-01-06] MEDS ORDERED: ALBUMIN HUMAN 25GM/100ML (25%) IV NR (11:45)
[2018-01-06] MEDS: SODIUM HYPOCHLORITE (0.25%) 480ML SOLUTION (HALF STRENGTH) TOP SCH (12:00)
[2018-01-06] MEDS: CEFTRIAXONE 2 G in DEXTROSE 5% WATER 50 ML IV SCH (12:00)
[2018-01-06] MEDS: ENOXAPARIN 60MG/0.6ML SYR SUBCUT SCH (12:38)
[2018-01-06 13:25] LABS: BG CARBOXYHEMOGLOBIN 0.2 % (0.5-1.5); BG DEOXYHEMOGLOBIN 3.3 % (0.0-5.0); BG FRACTION INSPIRED OXYGEN 30; BG HCO3 ACT 15.1 mmol/L (22.0-26.0); BG METHEMOGLOBIN 0.4 % (0.0-1.5); BG OXYGEN SATURATION 96.7 % (92.0-98.5); BG OXYHEMOGLOBIN 96.1 % (94.0-97.0); BG PCO2 26.3 mmHg (35.0-45.0); BG PH 7.376 (7.350-7.450); BG PO2 90.6 mmHg (75.0-100.0); BG PRESSURE SUPPORT 8; BG SAMPLE SITE RIGHT RADIAL; BG TOTAL HEMOGLOBIN 8.1 g/dL (12.0-18.0); BG VENT MODE VENT - CPAP
[2018-01-07] VITALS (52 sets, daily range): BP systolic 96–145; BP diastolic 29–75
[2018-01-07] MEDS: IPRATROPIUM/ALBUTEROL 0.5-3(2.5)MG/3ML NEB HHN SCH ×6 (00:16→20:54)
[2018-01-07] MEDS: INSULIN LISPRO 100 UNITS/ML SUBCUT SCH ×4 (00:21→18:43)
[2018-01-07] MEDS: ENOXAPARIN 60MG/0.6ML SYR SUBCUT SCH (00:22)
[2018-01-07] MEDS: MORPHINE SULFATE 4 MG/ML CPJ (NOT FOR IM USE) IV PRN ×2 (00:23→17:09)
[2018-01-07] MEDS: DEXT 5%/0.45% NACL 1000ML 1,000 ML IV SCH ×2 (01:19→19:00)
[2018-01-07] MEDS: BLOOD SUGAR DIAGNOSTIC STRIP TEST SCH ×4 (05:24→18:00)
[2018-01-07] MEDS: SODIUM CHLORIDE 0.9% INJ 3ML FLUSH IVF SCH ×3 (05:24→21:01)
[2018-01-07] MEDS: METRONIDAZOLE 500MG TABLET PO SCH ×3 (05:24→21:00)
[2018-01-07 05:30] LABS: BASOPHILS % 0.7 % (0.0-2.0); EOSINOPHILS % 0.6 % (0.0-5.0); HEMATOCRIT. 25.1 % (42.0-52.0); HEMOGLOBIN. 8.5 g/dL (14.0-18.0); LYMPHOCYTES % 8.6 % (20.0-50.0); MEAN CORPUSCULAR VOLUME 91.5 fL (80.0-94.0); MEAN PLATELET VOLUME 7.9 fl (7.4-10.4); MONOCYTES % 8.2 % (2.0-8.0); NEUTROPHILS % 81.9 % (40.0-76.0); PLATELET 192 x1000/uL (130-400); RED BLOOD CELL COUNT 2.75 mill/uL (4.7-6.1); RED CELL DISTRIBUTION WIDTH 16.3 % (11.6-14.6)
[2018-01-07] MEDS: SODIUM HYPOCHLORITE (0.25%) 480ML SOLUTION (HALF STRENGTH) TOP SCH (09:00)
[2018-01-07] MEDS: FAMOTIDINE 20MG TABLET PO SCH (09:59)
[2018-01-07] MEDS: CARVEDILOL 3.125 MG TABLET PO SCH ×2 (09:59→21:01)
[2018-01-07] MEDS: FUROSEMIDE 20MG/2ML VIAL IVP SCH (10:02)
[2018-01-07] MEDS: CEFTRIAXONE 2 G in DEXTROSE 5% WATER 50 ML IV SCH (10:16)
[2018-01-07] MEDS: VANCOMYCIN 1250MG in DEXTROSE 5% WATER 250ML IV SCH (21:00)
[2018-01-08] VITALS (51 sets, daily range): BP systolic 71–135; BP diastolic 40–75
[2018-01-08] MEDS: BLOOD SUGAR DIAGNOSTIC STRIP TEST SCH ×4 (00:06→18:05)
[2018-01-08] MEDS: INSULIN LISPRO 100 UNITS/ML SUBCUT SCH ×4 (00:10→18:35)
[2018-01-08] MEDS: IPRATROPIUM/ALBUTEROL 0.5-3(2.5)MG/3ML NEB HHN SCH ×6 (00:25→20:05)
[2018-01-08 04:31] LABS: HEMATOCRIT. 23.4 % (42.0-52.0); HEMOGLOBIN. 7.9 g/dL (14.0-18.0); MEAN CORPUSCULAR HEMOGLOBIN 30.7 pg (28.0-32.0); MEAN CORPUSCULAR VOLUME 90.9 fL (80.0-94.0); MEAN PLATELET VOLUME 6.8 fl (7.4-10.4); PLATELET 309 x1000/uL (130-400); RED BLOOD CELL COUNT 2.57 mill/uL (4.7-6.1); RED CELL DISTRIBUTION WIDTH 16.4 % (11.6-14.6)
[2018-01-08] MEDS: SODIUM CHLORIDE 0.9% INJ 3ML FLUSH IVF SCH ×3 (06:12→21:30)
[2018-01-08] MEDS: METRONIDAZOLE 500MG TABLET PO SCH ×3 (06:14→22:13)
[2018-01-08] MEDS ORDERED: KCL 20MEQ/100ML PREMIX 100 ML IV NR (07:00)
[2018-01-08 08:28] LABS: PLATELET ESTIMATE NORMAL
[2018-01-08 08:52] LABS: HEMATOCRIT. 24.2 % (42.0-52.0); HEMOGLOBIN. 8.1 g/dL (14.0-18.0); MEAN CORPUSCULAR HEMOGLOBIN 30.6 pg (28.0-32.0); MEAN CORPUSCULAR VOLUME 91.6 fL (80.0-94.0); MEAN PLATELET VOLUME 7.2 fl (7.4-10.4); PLATELET 349 x1000/uL (130-400); RED BLOOD CELL COUNT 2.64 mill/uL (4.7-6.1); RED CELL DISTRIBUTION WIDTH 16.7 % (11.6-14.6)
[2018-01-08 09:47] LABS: PLATELET ESTIMATE NORMAL
[2018-01-08] MEDS: FAMOTIDINE 20MG TABLET PO SCH (11:35)
[2018-01-08] MEDS: FUROSEMIDE 20MG/2ML VIAL IVP SCH (11:35)
[2018-01-08] MEDS: CARVEDILOL 3.125 MG TABLET PO SCH ×2 (11:35→21:00)
[2018-01-08] MEDS: CEFTRIAXONE 2 G in DEXTROSE 5% WATER 50 ML IV SCH (11:36)
[2018-01-08] MEDS: SODIUM HYPOCHLORITE (0.25%) 480ML SOLUTION (HALF STRENGTH) TOP SCH (11:51)
[2018-01-08] MEDS: ACETYLCYSTEINE 100MG/ML 10% VIAL 4ML INH SCH (15:46)
[2018-01-09] VITALS (30 sets, daily range): BP systolic 91–139; BP diastolic 48–73
[2018-01-09] MEDS: ACETYLCYSTEINE 100MG/ML 10% VIAL 4ML INH SCH ×2 (00:11→08:12)
[2018-01-09] MEDS: IPRATROPIUM/ALBUTEROL 0.5-3(2.5)MG/3ML NEB HHN SCH ×6 (00:11→20:53)
[2018-01-09] MEDS: INSULIN LISPRO 100 UNITS/ML SUBCUT SCH ×5 (00:25→23:49)
[2018-01-09] MEDS: BLOOD SUGAR DIAGNOSTIC STRIP TEST SCH ×5 (00:25→23:25)
[2018-01-09 05:38] LABS: BASOPHILS % 0.4 % (0.0-2.0); EOSINOPHILS % 1.4 % (0.0-5.0); HEMATOCRIT. 25.8 % (42.0-52.0); HEMOGLOBIN. 8.5 g/dL (14.0-18.0); LYMPHOCYTES % 7.1 % (20.0-50.0); MEAN CORPUSCULAR HEMOGLOBIN 30.2 pg (28.0-32.0); MEAN CORPUSCULAR VOLUME 90.9 fL (80.0-94.0); MONOCYTES % 8.8 % (2.0-8.0); NEUTROPHILS % 82.3 % (40.0-76.0); PLATELET 331 x1000/uL (130-400); RED BLOOD CELL COUNT 2.83 mill/uL (4.7-6.1); RED CELL DISTRIBUTION WIDTH 17.7 % (11.6-14.6)
[2018-01-09 06:00] LABS: CHLORIDE 121 mEq/L (98-107)
[2018-01-09] MEDS: SODIUM CHLORIDE 0.9% INJ 3ML FLUSH IVF SCH ×3 (06:02→22:48)
[2018-01-09] MEDS: METRONIDAZOLE 500MG TABLET PO SCH ×3 (06:45→22:48)
[2018-01-09] MEDS: SODIUM HYPOCHLORITE (0.25%) 480ML SOLUTION (HALF STRENGTH) TOP SCH (09:00)
[2018-01-09] MEDS: FUROSEMIDE 20MG/2ML VIAL IVP SCH (09:37)
[2018-01-09] MEDS: FAMOTIDINE 20MG TABLET PO SCH (09:38)
[2018-01-09] MEDS: CARVEDILOL 3.125 MG TABLET PO SCH ×2 (09:38→21:13)
[2018-01-09 10:03] LABS: HEMATOCRIT. 27.6 % (42.0-52.0); MEAN CORPUSCULAR HEMOGLOBIN 30.3 pg (28.0-32.0); MEAN CORPUSCULAR VOLUME 92.4 fL (80.0-94.0); MEAN PLATELET VOLUME 6.8 fl (7.4-10.4); PLATELET 333 x1000/uL (130-400); RED BLOOD CELL COUNT 2.99 mill/uL (4.7-6.1)
[2018-01-09 10:17] LABS: CHLORIDE 121 mEq/L (98-107)
[2018-01-09 10:35] LABS: PLATELET ESTIMATE NORMAL
[2018-01-09] MEDS: MORPHINE SULFATE 4 MG/ML CPJ (NOT FOR IM USE) IV PRN (11:08)
[2018-01-09] MEDS: CEFTRIAXONE 2 G in DEXTROSE 5% WATER 50 ML IV SCH (11:51)
[2018-01-09] MEDS: VANCOMYCIN 1250MG in DEXTROSE 5% WATER 250ML IV SCH (23:25)
[2018-01-10] VITALS (12 sets, daily range): BP systolic 106–134; BP diastolic 40–82
[2018-01-10] MEDS: ACETYLCYSTEINE 100MG/ML 10% VIAL 4ML INH SCH ×5 (00:30→16:12)
[2018-01-10] MEDS: IPRATROPIUM/ALBUTEROL 0.5-3(2.5)MG/3ML NEB HHN SCH ×6 (00:34→20:24)
[2018-01-10] MEDS: BLOOD SUGAR DIAGNOSTIC STRIP TEST SCH ×4 (05:59→23:53)
[2018-01-10] MEDS: SODIUM CHLORIDE 0.9% INJ 3ML FLUSH IVF SCH ×2 (05:59→18:53)
[2018-01-10] MEDS: INSULIN LISPRO 100 UNITS/ML SUBCUT SCH ×3 (06:11→18:15)
[2018-01-10] MEDS: FAMOTIDINE 20MG TABLET PO SCH (09:50)
[2018-01-10] MEDS: CARVEDILOL 3.125 MG TABLET PO SCH ×2 (09:52→21:00)
[2018-01-10] MEDS: FUROSEMIDE 20MG/2ML VIAL IVP SCH (09:52)
[2018-01-10 10:19] LABS: BASOPHILS % 0.7 % (0.0-2.0); HEMATOCRIT. 31.5 % (42.0-52.0); HEMOGLOBIN. 10.5 g/dL (14.0-18.0); LYMPHOCYTES % 10.5 % (20.0-50.0); MEAN CORPUSCULAR HEMOGLOBIN 30.9 pg (28.0-32.0); MEAN CORPUSCULAR VOLUME 92.6 fL (80.0-94.0); MEAN PLATELET VOLUME 7.6 fl (7.4-10.4); MONOCYTES % 6.6 % (2.0-8.0); NEUTROPHILS % 80.2 % (40.0-76.0); PLATELET 376 x1000/uL (130-400); RED CELL DISTRIBUTION WIDTH 17.8 % (11.6-14.6)
[2018-01-10 10:43] LABS: CHLORIDE 120 mEq/L (98-107)
[2018-01-10] MEDS: CEFTRIAXONE 2 G in DEXTROSE 5% WATER 50 ML IV SCH (12:02)
[2018-01-10] MEDS ORDERED: POTASSIUM CHLORIDE 20MEQ TABLET SR PO SCH (12:15)
[2018-01-10] MEDS: HYDROCODONE/ACETAMINOPHEN 5/325MG TABLET PO PRN (20:10)
[2018-01-10] MEDS: DIPHENHYDRAMINE 50MG/ML VIAL IV PRN (20:11)
[2018-01-11] VITALS (12 sets, daily range): BP systolic 111–143; BP diastolic 53–73
[2018-01-11] MEDS: SODIUM CHLORIDE 0.9% INJ 3ML FLUSH IVF SCH ×4 (00:01→21:37)
[2018-01-11] MEDS: IPRATROPIUM/ALBUTEROL 0.5-3(2.5)MG/3ML NEB HHN SCH ×6 (00:35→20:47)
[2018-01-11] MEDS: ACETYLCYSTEINE 100MG/ML 10% VIAL 4ML INH SCH ×3 (00:35→17:20)
[2018-01-11] MEDS: INSULIN LISPRO 100 UNITS/ML SUBCUT SCH ×5 (00:41→23:17)
[2018-01-11] MEDS: HYDROCODONE/ACETAMINOPHEN 5/325MG TABLET PO PRN ×2 (01:41→09:18)
[2018-01-11] MEDS: DIPHENHYDRAMINE 50MG/ML VIAL IV PRN (01:41)
[2018-01-11] MEDS: BLOOD SUGAR DIAGNOSTIC STRIP TEST SCH ×4 (05:39→23:07)
[2018-01-11 07:07] LABS: BASOPHILS % 0.7 % (0.0-2.0); EOSINOPHILS % 1.5 % (0.0-5.0); HEMATOCRIT. 30.2 % (42.0-52.0); LYMPHOCYTES % 10.8 % (20.0-50.0); MEAN CORPUSCULAR HEMOGLOBIN 30.7 pg (28.0-32.0); MEAN CORPUSCULAR VOLUME 92.5 fL (80.0-94.0); MEAN PLATELET VOLUME 6.6 fl (7.4-10.4); MONOCYTES % 6.5 % (2.0-8.0); NEUTROPHILS % 80.5 % (40.0-76.0); PLATELET 433 x1000/uL (130-400); RED BLOOD CELL COUNT 3.27 mill/uL (4.7-6.1); RED CELL DISTRIBUTION WIDTH 17.5 % (11.6-14.6)
[2018-01-11 07:47] LABS: CHLORIDE 120 mEq/L (98-107)
[2018-01-11] MEDS: FUROSEMIDE 20MG/2ML VIAL IVP SCH (08:09)
[2018-01-11] MEDS: FAMOTIDINE 20MG TABLET PO SCH (08:10)
[2018-01-11] MEDS: CARVEDILOL 3.125 MG TABLET PO SCH ×2 (08:10→21:37)
[2018-01-11] MEDS: CEFTRIAXONE 2 G in DEXTROSE 5% WATER 50 ML IV SCH (12:04)
[2018-01-11] MEDS ORDERED: POTASSIUM CHLORIDE 20MEQ/PACKET PO NR (13:00)
[2018-01-12] VITALS (14 sets, daily range): BP systolic 93–157; BP diastolic 54–74
[2018-01-12] MEDS: IPRATROPIUM/ALBUTEROL 0.5-3(2.5)MG/3ML NEB HHN SCH ×7 (00:11→20:28)
[2018-01-12] MEDS: HYDROCODONE/ACETAMINOPHEN 5/325MG TABLET PO PRN (03:33)
[2018-01-12] MEDS: ACETYLCYSTEINE 100MG/ML 10% VIAL 4ML INH SCH ×3 (04:06→16:09)
[2018-01-12] MEDS: INSULIN LISPRO 100 UNITS/ML SUBCUT SCH ×3 (05:25→17:58)
[2018-01-12] MEDS: SODIUM CHLORIDE 0.9% INJ 3ML FLUSH IVF SCH ×2 (05:26→17:46)
[2018-01-12] MEDS: BLOOD SUGAR DIAGNOSTIC STRIP TEST SCH ×3 (05:26→18:10)
[2018-01-12] MEDS: FAMOTIDINE 20MG TABLET PO SCH (09:39)
[2018-01-12] MEDS: CARVEDILOL 3.125 MG TABLET PO SCH ×2 (09:41→21:43)
[2018-01-12] MEDS: CEFTRIAXONE 2 G in DEXTROSE 5% WATER 50 ML IV SCH (11:27)
[2018-01-12] MEDS ORDERED: FUROSEMIDE 20MG TABLET PO SCH (13:00)
== END 2018-01-12 22:10 | DRG 270 ==
LOC: ER 15:43 → MICUSO 18:09 → EDBEDREQSVC 18:43 → EDBEDREQ 18:43 → EDBEDREQTM 18:43 → ENRESERV 20:43 → 5EST 01-09 13:30
PROVIDERS: ADMIT Family Medicine; ATTEND Family Medicine
PROC: 5A1955Z Respiratory Ventilation, Greater than 96 Consecutive Hours (ICD-10-PCS; principal; 2017-12-27)
PROC: 0BH17EZ Insertion of Endotracheal Airway into Trachea, Via Natural or Artificial Opening (ICD-10-PCS; 2017-12-27)
PROC: 5A09357 Assistance with Respiratory Ventilation, Less than 24 Consecutive Hours, Continuous Positive Airway Pressure (ICD-10-PCS; 2017-12-27)
PROC: 02HV33Z Insertion of Infusion Device into Superior Vena Cava, Percutaneous Approach (ICD-10-PCS; 2017-12-28)
PROC: B548ZZA Ultrasonography of Superior Vena Cava, Guidance (ICD-10-PCS; 2017-12-28)
PROC: 0KBR0ZZ Excision of Left Upper Leg Muscle, Open Approach (ICD-10-PCS; 2017-12-30)
PROC: 30233N1 Transfusion of Nonautologous Red Blood Cells into Peripheral Vein, Percutaneous Approach (ICD-10-PCS; 2018-01-03)
PROC: 041 Lower Arteries, Bypass (ICD-10-PCS; 2018-01-04)
PROC: 04CL0ZZ Extirpation of Matter from Left Femoral Artery, Open Approach (ICD-10-PCS; 2018-01-04)
PROC: 0Y6D0Z1 Detachment at Left Upper Leg, High, Open Approach (ICD-10-PCS; 2018-01-04)
PROC: 04PY0JZ Removal of Synthetic Substitute from Lower Artery, Open Approach (ICD-10-PCS; 2018-01-04)
DX: T82.7XXA Infection and inflammatory reaction due to other cardiac and vascular devices, implants and grafts, initial encounter (principal); E43 Unspecified severe protein-calorie malnutrition; J96.01 Acute respiratory failure with hypoxia; R65.21 Severe sepsis with septic shock; I21.4 Non-ST elevation (NSTEMI) myocardial infarction; I50.23 Acute on chronic systolic (congestive) heart failure; J18.9 Pneumonia, unspecified organism; A40.9 Streptococcal sepsis, unspecified; E87.0 Hyperosmolality and hypernatremia; I48.1 Persistent atrial fibrillation; E11.52 Type 2 diabetes mellitus with diabetic peripheral angiopathy with gangrene; L02.416 Cutaneous abscess of left lower limb; I42.9 Cardiomyopathy, unspecified; M86.8X8 Other osteomyelitis, other site; I13.0 Hypertensive heart and chronic kidney disease with heart failure and stage 1 through stage 4 chronic kidney disease, or unspecified chronic kidney disease; L89.90 Pressure ulcer of unspecified site, unspecified stage; B95.62 Methicillin resistant Staphylococcus aureus infection as the cause of diseases classified elsewhere; D64.9 Anemia, unspecified; E03.9 Hypothyroidism, unspecified; E87.6 Hypokalemia; F03.90 Unspecified dementia, unspecified severity, without behavioral disturbance, psychotic disturbance, mood disturbance, and anxiety; F32.9 Major depressive disorder, single episode, unspecified; F17.210 Nicotine dependence, cigarettes, uncomplicated; I25.5 Ischemic cardiomyopathy; I25.10 Atherosclerotic heart disease of native coronary artery without angina pectoris; M10.9 Gout, unspecified; T46.0X5A Adverse effect of cardiac-stimulant glycosides and drugs of similar action, initial encounter; N18.9 Chronic kidney disease, unspecified; E11.22 Type 2 diabetes mellitus with diabetic chronic kidney disease; J44.9 Chronic obstructive pulmonary disease, unspecified; I48.91 Unspecified atrial fibrillation; I49.5 Sick sinus syndrome; R79.89 Other specified abnormal findings of blood chemistry; L89.899 Pressure ulcer of other site, unspecified stage; L89.320 Pressure ulcer of left buttock, unstageable; L89.310 Pressure ulcer of right buttock, unstageable; R74.0 Nonspecific elevation of levels of transaminase and lactic acid dehydrogenase [LDH]; E11.69 Type 2 diabetes mellitus with other specified complication; Y83.2 Surgical operation with anastomosis, bypass or graft as the cause of abnormal reaction of the patient, or of later complication, without mention of misadventure at the time of the procedure; R19.7 Diarrhea, unspecified; Z95.1 Presence of aortocoronary bypass graft; Z82.49 Family history of ischemic heart disease and other diseases of the circulatory system; Z95.810 Presence of automatic (implantable) cardiac defibrillator; Z90.79 Acquired absence of other genital organ(s); Z87.11 Personal history of peptic ulcer disease; Z86.73 Personal history of transient ischemic attack (TIA), and cerebral infarction without residual deficits; Z85.46 Personal history of malignant neoplasm of prostate; Z85.3 Personal history of malignant neoplasm of breast; Z78.1 Physical restraint status; Y92.89 Other specified places as the place of occurrence of the external cause; Z79.899 Other long term (current) drug therapy; Z79.4 Long term (current) use of insulin; Z68.21 Body mass index [BMI] 21.0-21.9, adult; Z74.01 Bed confinement status
CPT/HCPCS: 31500; 36415; 36569; 36600; 51702; 71045; 73501; 73560; 73630; 76770; 76937; 80048; 80053; 80061; 80076; 80162; 80202; 80305; 81003; 82270; 82375; 82550; 82553; 82805; 82962; 83036; 83605; 83690; 83735; 83880; 84443; 84478; 84484; 85014; 85018; 85025; 85027; 85379; 85610; 85651; 85730; 86140; 86850; 86900; 86920; 87015; 87040; 87045; 87070; 87077; 87186; 87205; 87427; 87449; 88304; 88307; 88311; 92610; 93005; 93306; 93923; 93970; 94002; 94003; 94640; 94660; 94667; 96365; 96366; 96368; 96375; 97110; 97163; 97167; 99291; A4216; A6261; C1725; C1768; C1884; C9113; J0696; J1200; J1644; J1650; J1815; J1940; J2060; J2250; J2270; J2543; J2704; J2720; J3010; J3370; J3480; J3490; J7030; J7040; J7050; J7060; J7608; J7620; P9016; P9047